=== PATIENT | female | born 1985 | race Two or more races ===

== ENCOUNTER 2018-07-04 14:55 | Emergency (ER) | payer SELFPAY ==
[2018-07-04] MEDS ORDERED: ASPIRIN 81 MG TABLET, CHEWABLE PO ONE (15:42)
--- NOTE | 2018-07-04 15:48 | EKG REPORT ---
SEVERITY:- ABNORMAL ECG - SINUS RHYTHM INCOMPLETE RIGHT BUNDLE BRANCH BLOCK : Confirmed by: Carleen Zepeda MD 04-Jul-2018 15:47:02
--- NOTE | 2018-07-04 16:13 | ER Document Report ---
ED General - General Chief Complaint: Chest Pain Stated Complaint: CHEST PAIN Time Seen by Provider: 07/04/18 15:47 Mode of Arrival: Ambulatory Information source: Patient Notes: This is a 33-year-old Kazakh-speaking female. History and physical exam was assisted with NIMISHA([id number]). Patient states that she is been having left chest wall pain for the past 2 weeks. She states that it is tender to touch. She states that it seems to go to the back of her shoulder. She does have pain in the left hand when she sleeps at night. She does states she normally sleeps on the left-hand side. She states that the pain is improved when she starts walking around during her day. She denies shortness of breath. She denies any fever or chills or cough. She denies any calf tenderness. She denies any family history for blood clots. She has no history of seizures. She does not smoke. She is on no medicines and has no allergies. Patient does states she had a similar episode this past August which lasted for several weeks before going away. TRAVEL OUTSIDE OF THE [place] IN LAST 30 DAYS: No - HPI Onset: Other - Past 2 weeks Onset/Duration: Gradual Quality of pain: Dull Severity: Moderate Pain Level: 2 Associated symptoms: Chest pain. denies: Diarrhea, Headache, Nausea, Vomiting, Shortness of breath Exacerbated by: Other - Palpation. denies: Deep breathing Relieved by: Other - Activity: Moving around, walking, being active. Similar symptoms previously: Yes Recently seen / treated by doctor: No - Related Data Allergies/Adverse Reactions: No Known Allergies Allergy (Verified 07/04/18 14:56) Past Medical History - General Information source: Patient - Social History Smoking Status: Never Smoker Cigarette use (# per day): No Chew tobacco use (# tins/day): No Frequency of alcohol use: None Drug Abuse: None Lives with: Family Family History: None Patient has suicidal ideation: No Patient has homicidal ideation: No - Medical History Medical History: Negative Surgical Hx: Negative Review of Systems - Review of Systems Constitutional: denies: Chills, Fever EENT: No symptoms reported Cardiovascular: denies: Palpitations, Heart racing, Orthopnea, Syncope, Dizziness, Lightheaded, Edema Respiratory: No symptoms reported Gastrointestinal: denies: Abdominal pain, Diarrhea, Vomiting, Constipation Genitourinary: No symptoms reported Female Genitourinary: No symptoms reported Musculoskeletal: See HPI Skin: No symptoms reported Hematologic/Lymphatic: No symptoms reported Neurological/Psychological: No symptoms reported Physical Exam - Vital signs Vitals: Temp Pulse Resp BP Pulse Ox 98.2 F 77 18 115/60 99 07/04/18 15:05 07/04/18 15:05 07/04/18 15:05 07/04/18 15:05 07/04/18 15:05 Notes: Physical exam: GENERAL: 33-year-old female, alert and orient x3, no acute distress. HEAD: Atraumatic, normocephalic. EYES: Pupils equal round and reactive to light, extraocular movements intact, sclera anicteric, conjunctiva are normal. ENT: TMs normal, nares patent, oropharynx clear without exudates. Moist mucous membranes. NECK: Normal range of motion, supple without obvious mass or JVD. LUNGS: Breath sounds clear to auscultation bilaterally and equal. No wheezes rales or rhonchi. HEART: Regular rate and rhythm without murmurs, rubs or gallops. Chest wall: Patient does have a tender area to palpation over the left anterior chest wall just above her breast. There is no obvious fluctuance or obvious mass. ABDOMEN: Soft, normoactive bowel sounds. No tenderness to palpation. No guarding, no rebound. No masses appreciated. EXTREMITIES: Normal range of motion, no pitting or edema. No clubbing or cyanosis. NEUROLOGICAL: Cranial nerves II through XII grossly intact. Normal speech, moving all extremities. PSYCH: Normal mood, normal affect. SKIN: Warm, Dry, normal turgor, no rashes or lesions noted. Course - Re-evaluation Re-evalutation: 07/04/18 20:52 Note: PERC criteria negative, d-dimer negative. Chest x-ray is clear. Labs look quite good. Test results explained to the patient in Kazakh using Elmer ([id number]). All questions answered. Think most likely the patient has some inflammation in the chest wall and I will refer her to a primary care doctor but given the number the health department just in case. Patient was concerned about a tender area on her chest wall and a possible lump. I reexamined the area with the nurse present and I do not feel a definitive mass. She does have an area of tenderness. I recommended she follow-up with a primary care doctor in 1 week after the medicine to see if her symptoms are still there. 07/05/18 00:55 - Vital Signs Vital signs: Temp Pulse Resp BP Pulse Ox 98.2 F 77 19 109/77 99 07/04/18 15:05 07/04/18 15:05 07/04/18 20:01 07/04/18 21:01 07/04/18 21:01 - Laboratory Result Diagrams: 07/04/18 15:56 07/04/18 15:56 Laboratory results interpreted by me: 07/04/18 07/04/18 15:56 15:56 Hgb 11.6 L Hct 35.9 L MCV 72 L MCH 23.3 L RDW 20.8 H Urine Urobilinogen 4.0 H Ur Leukocyte Esterase LARGE H - Diagnostic Test Radiology reviewed: Image reviewed, Reports reviewed - Chest x-ray shows no obvious infiltrates. The radiologist does question whether there could be some pulmonary congestion. Patient has no clinical evidence of CHF on exam and she has a normal BNP. I have no suspicion for CHF. Additionally, the patient has not been complaining of shortness of breath. - EKG Interpretation by Me Rate: Normal Rhythm: NSR - EKG shows normal sinus rhythm with a ventricular rate of 80, there is evidence of an incomplete right bundle branch block, there is no acute ST elevations or depressions. There is no old EKG for comparison. Discharge - Discharge Clinical Impression: Chest wall pain Condition: Stable Disposition: HOME, SELF-CARE Instructions: Chest Wall Pain ([facility]) Additional Instructions: As we discussed, the chest x-ray today was clear. Your heart tests look quite good. Your kidneys, electrolytes, liver function tests and anemia studies were all normal. There is no evidence of abnormal blood clotting in your blood work. Your exam is most consistent with chest wall irritation. I recommend taking the medicine as prescribed. I would like you to follow-up with a doctor for repeat examination in 1 week: I left the number for both primary care doctor in the community as well as the number for the health department. I would like you to bring a copy of today's lab tests with you when you go for that evaluation. Prescriptions: Ibuprofen 400 mg PO Q8 #14 tablet [facility] [NO LOCAL MD] - Follow up as needed (Is the number for the health department.) TACHO ESTEVES MD [COMMUNITY BASED STAFF] - Follow up as needed (This is a number of a primary care doctor in the community.)
[2018-07-04 16:20] LABS: ABSOLUTE EOSINOPHILS # (AUTO) 0.3 10^3/uL (0.0-0.6); ABSOLUTE LYMPHOCYTES (AUTO) 1.1 10^3/uL (0.5-4.7); ABSOLUTE MONOCYTES (AUTO) 0.5 10^3/uL (0.1-1.4); ABSOLUTE NEUT (AUTO) 4.5 10^3/uL (1.7-8.2); BASOPHILS % (AUTO) 0.5 % (0-2); EOSINOPHILS % (AUTO) 4.1 % (0-6); HEMATOCRIT 35.9 % (36.0-47.0); HEMOGLOBIN 11.6 g/dL (12.0-15.5); LYMPHOCYTES % (AUTO) 17.8 % (13-45); MEAN CORPUSCULAR HEMOGLOBIN 23.3 pg (27.0-33.4); MEAN CORPUSCULAR HGB CONC 32.5 g/dL (32.0-36.0); MEAN CORPUSCULAR VOLUME 72 fl (80-97); MONOCYTES % (AUTO) 7.8 % (3-13); PLATELET COUNT 234 10^3/uL (150-450); RED CELL DISTRIBUTION WIDTH 20.8 % (11.5-14.0); SEGMENTED NEUTROPHILS % (AUTO) 69.8 % (42-78); TOTAL CELLS COUNTED % (AUTO) 100 %; WHITE BLOOD COUNT 6.4 10^3/uL (4.0-10.5)
[2018-07-04 16:22] LABS: APPEARANCE,URINE CLOUDY; BILIRUBIN,URINE NEGATIVE (NEGATIVE); COLOR,URINE YELLOW; GLUCOSE, URINE NEGATIVE (NEGATIVE); KETONES,URINE NEGATIVE (NEGATIVE); LEUKOCYTE ESTERASE,URINE LARGE (NEGATIVE); NITRITE,URINE NEGATIVE (NEGATIVE); PROTEIN,URINE NEGATIVE (NEGATIVE)
[2018-07-04 16:38] LABS: ALANINE AMINOTRANSFERASE 11 U/L (9-52); ALBUMIN 4.3 g/dL (3.5-5.0); ALKALINE PHOSPHATASE 79 U/L (38-126); ANION GAP 12 (5-19); ASPARTATE AMINO TRANSFERASE 23 U/L (14-36); BILIRUBIN,DIRECT 0.3 mg/dL (0.0-0.4); BILIRUBIN,TOTAL 0.7 mg/dL (0.2-1.3); BLOOD UREA NITROGEN 16 mg/dL (7-20); CALCIUM 9.5 mg/dL (8.4-10.2); CARBON DIOXIDE 26 mmol/L (22-30); CHLORIDE 106 mmol/L (98-107); CREATINE KINASE 33 U/L (30-135); GLUCOSE 84 mg/dL (75-110); POTASSIUM 3.8 mmol/L (3.6-5.0); SODIUM 143.6 mmol/L (137-145); TOTAL PROTEIN 7.4 g/dL (6.3-8.2)
--- NOTE | 2018-07-04 16:40 | RADIOLOGY REPORT (SQ) ---
EXAM DESCRIPTION: CHEST 2 VIEWS COMPLETED DATE/TIME: 07/04/2018 4:24 pm REASON FOR STUDY: cp COMPARISON: None. EXAM PARAMETERS: NUMBER OF VIEWS: two views TECHNIQUE: Digital Frontal and Lateral radiographic views of the chest acquired. RADIATION DOSE: NA LIMITATIONS: none FINDINGS: LUNGS AND PLEURA: Pulmonary vascular congestion. No pulmonary edema, infiltrate, or effus ion. MEDIASTINUM AND HILAR STRUCTURES: No masses or contour abnormalities. HEART AND VASCULAR STRUCTURES: Heart normal size. No evidence for failure. BONES: No acute findings. HARDWARE: None in the chest. OTHER: No other significant finding. IMPRESSION: Pulmonary vascular congestion without pulmonary edema. TECHNICAL DOCUMENTATION: JOB ID: [id number] [employer]- All Rights Reserved Reading location - IP/workstation name: [email or web address]
[2018-07-04 16:57] LABS: CREATINE KINASE MB < 0.22 ng/mL (<4.55); TROPONIN I < 0.012 ng/mL
[2018-07-04 21:13] VITALS: BP 109/77
== END 2018-07-04 21:31 | disposition home or self-care (01) ==
LOC: ER 14:55
DX: R07.89 Other chest pain (principal); M79.642 Pain in left hand; I45.10 Unspecified right bundle-branch block
CPT/HCPCS: 36415; 71046; 80053; 81001; 82550; 82553; 83880; 84484; 85025; 85379; 93005; 93010; 99285